=== PATIENT | male | born 1985 | race Caucasian/White ===

== ENCOUNTER 2017-12-13 17:37 | Emergency (ER) | payer BC ==
[~2017-12-13] VITALS: Ht 167.6 cm; Wt 123.5 kg
[~2017-12-13 17:37] MED LIST: AMOXIL 875 MG875 M1 PO; HYDROCODONE-APA1 TA1 PO; KEFLEX500 MG PO; MULTIVITAMINS1 EAC7 PO; NORCO 5-325 TA1 EACH PO; ONDANSETRON HCL4 M2 PO; PREDNISONE 20 M20 MG PO; TESSALON PERLE100 MG PO; TORADOL 10 MG T10 MG PO; VENTOLIN HFA 1818 GM INH; ZOFRAN4 MG PO
[2017-12-13] MEDS ORDERED: PREDNISONE 20 M20 M1 PO (17:58)
[2017-12-13] MEDS ORDERED: PROAIR HFA8.5 GM INH (17:58)
[2017-12-13 18:26] VITALS: BP 135/78
== END 2017-12-13 18:27 | disposition home or self-care (01) ==
LOC: M.ERS 17:37
DX: J45.901 Unspecified asthma with (acute) exacerbation (principal); R42 Dizziness and giddiness

== ENCOUNTER 2020-08-06 09:43 | Emergency (ER) | payer OTHER, BC ==
[~2020-08-06] VITALS: Ht 167.6 cm; Wt 127.0 kg
[~2020-08-06 09:43] MED LIST changes: +PREDNISONE 20 M20 M1 PO; +PROAIR HFA8.5 GM INH
[2020-08-06] MEDS ORDERED: IBUPROFEN 800800 M1 PO (10:21)
[2020-08-06] MEDS ORDERED: ZANAFLEX4 MG PO (10:21)
[2020-08-06 11:45] VITALS: BP 124/77
== END 2020-08-06 11:46 | disposition home or self-care (01) ==
LOC: M.ERS 09:43
DX: M79.622 Pain in left upper arm (principal); Z90.49 Acquired absence of other specified parts of digestive tract

== ENCOUNTER 2021-09-29 23:05 | Emergency (ER) | payer BC ==
[~2021-09-29] VITALS: Ht 170.2 cm; Wt 124.7 kg
[~2021-09-29 23:05] MED LIST changes: +IBUPROFEN 800800 M1 PO; +ZANAFLEX4 MG PO
[2021-09-29 23:45] LABS: ABSOLUTE EOSINOPHILS 0.1 thou/uL (0.0-0.7); ABSOLUTE MONOCYTES 0.5 thou/uL (0.0-1.2); ABSOLUTE NEUTROPHILS 4.1 thou/uL (1.6-8.1); BASOPHILS 0.7 %; EOSINOPHILS 1.8 %; HEMATOCRIT 44.6 % (42.0-52.0); HEMOGLOBIN 14.8 gm/dL (14.0-18.0); LYMPHOCYTES 17.9 %; MCH 29.7 pg (26.0-34.0); MCHC 33.2 g/dL (28.0-37.0); MCV 89.2 fL (80.0-100.0); MONOCYTES 8.7 %; MPV 8.5 fl. (7.2-11.1); NUCLEATED RBCS 0 /100WBC; PLATELET COUNT* 192 thou/uL (150-400); POLYS 70.9 %; WBC 5.7 thou/uL (4.0-11.0)
[2021-09-29 23:47] LABS: CALCIUM 8.7 mg/dL (8.5-10.1)
[2021-09-29 23:51] LABS: ALBUMIN 3.6 g/dL (3.4-5.0); MAGNESIUM 1.9 mg/dL (1.8-2.4); TOTAL BILIRUBIN 1.4 mg/dL (<0.1-1.0); TOTAL PROTEIN 7.7 g/dL (6.4-8.2)
[2021-09-30] MEDS ORDERED: BENTYL 10 MG CA10 M1 PO (00:04)
[2021-09-30] MEDS ORDERED: ZOFRAN ODT4 MG PO (00:04)
[2021-09-30 00:08] VITALS: BP 128/80
== END 2021-09-30 00:09 | disposition home or self-care (01) ==
LOC: M.ERS 23:05
PROVIDERS: Emergency Medicine
DX: R19.7 Diarrhea, unspecified (principal); Z90.49 Acquired absence of other specified parts of digestive tract